=== PATIENT | male | born 1980 | race Caucasian/White ===

== ENCOUNTER 2022-04-28 20:12 | Emergency (ER) | payer MEDICAID ==
[~2022-04-28] VITALS: Ht 177.8 cm; Wt 79.5 kg
[2022-04-29 04:07] VITALS: BP 121/85
== END 2022-04-29 05:15 | disposition home or self-care (01) ==
LOC: ER 20:13
DX: M79.604 Pain in right leg (principal); R42 Dizziness and giddiness; F17.200 Nicotine dependence, unspecified, uncomplicated
CPT/HCPCS: 99281